=== PATIENT | female | born 1950 | race Caucasian/White ===

== ENCOUNTER 2017-06-18 12:55 | Emergency (ER) | payer MEDICARE, OTHER ==
[2017-06-18 13:01] VITALS: BP 129/72
--- NOTE | 2017-06-18 13:59 | UC ---
Ear Complaint HPI - HPI Summary HPI Summary: THREE WEEKS AGO HAD RIGHT PLUGGED EAR, WENT TO [facility] AND HAD EAR IRRIGATED. SINCE IRRIGATION HAS HAD CONTINUED RIGHT EAR PAIN AND BLOOD TINGED DISCHARGE FOR TWO WEEKS. NO FEVER. NO SORE THROAT. NO NASAL CONGESTION. NO HEADACHES. NO PAIN IN NECK OR LEFT EAR. - History of Current Complaint Chief Complaint: UCEar Stated Complaint: PLUGGED EAR Time Seen by Provider: 06/18/17 12:59 Hx Obtained From: Patient Onset/Duration: Gradual Onset, Lasting Weeks, Still Present Severity Initially: Mild Severity Currently: Moderate Pain Intensity: 0 Pain Scale Used: 0-10 Numeric Associated Signs/Symptoms: Positive: Discharge, Hearing Loss, Trauma to Ear - Allergies/Home Medications Allergies/Adverse Reactions: Allergies Allergy/AdvReac Type Severity Reaction Status Date / Time No Known Allergies Allergy Verified 06/18/17 13:01 PMH/Surg Hx/FS Hx/Imm Hx Previously Healthy: Yes - Surgical History Surgical History: None - Family History Known Family History: Negative: Respiratory Disease, Blood Disorder - Social History Occupation: Employed Full-time Lives: With Family Alcohol Use: Rare Substance Use Type: None Smoking Status (MU): Never Smoked Tobacco Review of Systems Constitutional: Negative Skin: Negative Eyes: Negative ENT: Ear Ache Respiratory: Negative Cardiovascular: Negative Gastrointestinal: Negative Genitourinary: Negative Motor: Negative Neurovascular: Negative Musculoskeletal: Negative Neurological: Negative Psychological: Negative All Other Systems Reviewed And Are Negative: Yes Physical Exam Triage Information Reviewed: Yes Appearance: Well-Appearing, Well-Nourished, Pain Distress - MILD Vital Signs: Initial Vital Signs Temp 98.6 F 06/18/17 12:57 Pulse 86 06/18/17 12:57 Resp 16 06/18/17 12:57 BP 129/72 06/18/17 12:57 Pulse Ox 98 06/18/17 12:57 Vital Signs Reviewed: Yes Eye Exam: Normal ENT: Positive: Other: - RIGHT EAC ERYTHEMA EDEMA Dental Exam: Normal Neck exam: Normal Neck: Positive: Supple, Nontender Respiratory Exam: Normal Respiratory: Positive: Chest non-tender, Lungs clear, Normal breath sounds, No respiratory distress Cardiovascular Exam: Normal Cardiovascular: Positive: RRR, No Murmur, Pulses Normal Abdominal Exam: Normal Musculoskeletal Exam: Normal Musculoskeletal: Positive: Strength Intact, ROM Intact Neurological Exam: Normal Psychological Exam: Normal Skin Exam: Normal Ear Complaint Course/Dx - Differential Dx/Diagnosis Differential Diagnosis/HQI/PQRI: Otitis Externa, Otitis Media, Perforated TM, URI Provider Diagnoses: RIGHT OTITIS EXTERNA; BAROTRAUMA Discharge - Discharge Plan Condition: Stable Disposition: HOME Prescriptions: Amoxicillin/Clavulanate TAB* [Augmentin TAB 875*] 875 mg PO BID #20 tab Ciproflox/Dexameth OTIC.SUSP* [Ciprodex OTIC.SUSP*] 3 drop .SEE ORDER TID #1 btl Patient Education Materials: Otitis Externa (ED), Barotrauma (ED) Referrals: [facility] [Outside] Low Simental MD [Medical Doctor] -
== END 2017-06-18 13:28 | disposition home or self-care (01) ==
LOC: UCEAST 12:55
DX: H60.91 Unspecified otitis externa, right ear (principal); T70.29XA Other effects of high altitude, initial encounter
CPT/HCPCS: 99212; G0463